=== PATIENT | female | born 1970 | race Caucasian/White ===

== ENCOUNTER 2022-03-10 10:09 | Outpatient (CLI) | payer BC, SELFPAY ==
--- NOTE | 2022-03-10 10:15 | CRLHL7_ITS ---
For Patients: As a result of the Century Cures Act, medical imaging exams and procedure reports are released immediately into your electronic medical record. You may view this report before your referring provider. If you have questions, please contact your health care provider. BILATERAL SCREENING MAMMOGRAM WITH COMPUTER-AIDED DETECTION AND TOMOSYNTHESIS TECHNIQUE: CC and MLO views were obtained. These mammographic images have been obtained using full-field digital technique. These mammographic images were interpreted with the benefit of computer-aided detection. Breast Tomosynthesis was used in this interpretation. COMPARISON FILM: 01/18/21, 11/21/19, 09/17/18. FINDINGS: The breasts are extremely dense, which lowers the sensitivity of mammography IMPRESSION: There is no radiographic evidence for malignancy. ASSESSMENT: BI-RADS Category 2: Benign RECOMMENDATION: Routine screening mammogram in 1 year. A lay language report of this examination will be provided to the patient. Celestino Howe M.D. Diagnostic Radiologist [email or web address] Transcribed: 7:33 p.m. YESSICA/Dictated by: Celestino Howe MD @ 03/16/2022 10:45:00 AM (Electronically Signed)
== END 2022-03-10 10:10 | disposition home or self-care (01) ==
LOC: MAMMO 10:10
PROVIDERS: PCP Family Medicine; Visit Provider Registered Nurse
DX: Z12.31 Encounter for screening mammogram for malignant neoplasm of breast (principal); R92.2 Inconclusive mammogram
CPT/HCPCS: 77063; 77067

== ENCOUNTER 2023-01-17 09:28 | Outpatient (CLI) | payer BC, SELFPAY | END 2023-01-17 09:29 | disposition home or self-care (01) | LOC: NFLDREF 01-19 10:53 | PROVIDERS: PCP Family Medicine; Referring Provider Family Medicine; Visit Provider Family Medicine | DX: Z01.419 Encounter for gynecological examination (general) (routine) without abnormal findings (principal); R73.03 Prediabetes; D64.9 Anemia, unspecified; F41.9 Anxiety disorder, unspecified; F33.42 Major depressive disorder, recurrent, in full remission; Z79.899 Other long term (current) drug therapy; Z13.6 Encounter for screening for cardiovascular disorders; Z13.9 Encounter for screening, unspecified | CPT/HCPCS: 80053; 80061; 84439; 84443 ==

== ENCOUNTER 2023-05-05 11:14 | Outpatient (CLI) | payer BC, SELFPAY ==
--- NOTE | 2023-05-05 11:30 | CRLHL7_ITS ---
For Patients: As a result of the Century Cures Act, medical imaging exams and procedure reports are released immediately into your electronic medical record. You may view this report before your referring provider. If you have questions, please contact your health care provider. BILATERAL SCREENING MAMMOGRAM WITH COMPUTER-AIDED DETECTION AND TOMOSYNTHESIS TECHNIQUE: CC and MLO views were obtained. These mammographic images have been obtained using full-field digital technique. These mammographic images were interpreted with the benefit of computer-aided detection. Breast tomosynthesis was used in this interpretation. COMPARISON FILM: 03/10/22, 01/18/21, 11/21/19. FINDINGS: The breasts are extremely dense, which lowers the sensitivity of mammography. IMPRESSION: There is no radiographic evidence for malignancy. ASSESSMENT: BI-RADS Category 1: Negative RECOMMENDATION: Routine screening mammogram in 1 year. A lay language report of this examination will be provided to the patient. CELESTINO VAUGHN M.D. Diagnostic Radiologist [email or web address] Transcribed: 05/05/2023, 2:[address]/Dictated by: Celestino Vaughn MD @ 05/05/2023 12:08:00 PM (Electronically Signed)
== END 2023-05-05 11:15 | disposition home or self-care (01) ==
LOC: MAMMO 11:15
PROVIDERS: PCP Family Medicine; Visit Provider Family Medicine
DX: Z12.31 Encounter for screening mammogram for malignant neoplasm of breast (principal); R92.2 Inconclusive mammogram
CPT/HCPCS: 77063; 77067

== ENCOUNTER 2024-02-07 09:36 | Outpatient (CLI) | payer BC, SELFPAY | END 2024-02-07 09:37 | disposition home or self-care (01) | PROVIDERS: PCP Family Medicine; Visit Provider Family Medicine | DX: R73.03 Prediabetes (principal); D64.9 Anemia, unspecified; F41.9 Anxiety disorder, unspecified | CPT/HCPCS: 80061; 82607; 84439; 84443; 84480; 84481 ==

== ENCOUNTER 2024-05-28 09:53 | Outpatient (CLI) | payer BC, SELFPAY | END 2024-05-28 09:54 | disposition home or self-care (01) | LOC: MAMMO 09:54 | PROVIDERS: PCP Family Medicine; Visit Provider Family Medicine | DX: Z12.31 Encounter for screening mammogram for malignant neoplasm of breast (principal); R92.343 Mammographic extreme density, bilateral breasts | CPT/HCPCS: 77063; 77067 ==

== ENCOUNTER 2024-07-15 08:15 | Outpatient (CLI) | payer BC, SELFPAY | END 2024-07-15 08:16 | disposition home or self-care (01) | LOC: NFLDREF 07-16 03:39 | PROVIDERS: PCP Family Medicine; Referring Provider Family Medicine; Visit Provider Family Medicine | DX: E03.9 Hypothyroidism, unspecified (principal) | CPT/HCPCS: 84443 ==